=== PATIENT | female | born 1995 | race Two or more races ===

== ENCOUNTER 2019-08-31 22:52 | Emergency (ER) | payer OTHER ==
[~2019-08-31] VITALS: Ht 172.7 cm; Wt 119.7 kg
[2019-08-31 23:20] VITALS: Ht 172.7 cm; Wt 119.7 kg
[2019-09-01 01:45] VITALS: BP 120/75
== END 2019-09-01 01:46 | disposition home or self-care (01) ==
LOC: ED 22:52
DX: J02.9 Acute pharyngitis, unspecified (principal)
CPT/HCPCS: J1885